=== PATIENT | male | born 1970 | race African-American/Black ===

== ENCOUNTER 2016-08-25 19:09 | Emergency (ER) | payer SELFPAY ==
[~2016-08-25] VITALS: Ht 172.7 cm; Wt 65.8 kg
--- NOTE | 2016-08-25 19:56 | PHYS DOC ---
Past Medical History Past Medical History: No Pertinent History Past Surgical History: No Surgical History Alcohol Use: Occasionally Drug Use: None Adult General Chief Complaint Chief Complaint: ABDOMINAL PAIN HPI HPI Patient is a 46 year old male who presents with one-week history of left flank pain nontraumatic no nausea vomiting diarrhea no fever no dysuria; positive for urinary frequency. Denies any abdominal pain. No prior history of kidney stones. Denies any other medical problems such as diabetes Review of Systems Review of Systems Constitutional: Denies fever or chills [] Eyes: Denies change in visual acuity, redness, or eye pain [] HENT: Denies nasal congestion or sore throat [] Respiratory: Denies cough or shortness of breath [] Cardiovascular: No additional information not addressed in HPI [] GI: Denies abdominal pain, nausea, vomiting, bloody stools or diarrhea [] : Denies dysuria or hematuria [] Musculoskeletal: Denies back pain or joint pain [] Integument: Denies rash or skin lesions [] Neurologic: Denies headache, focal weakness or sensory changes [] Endocrine: Denies polyuria or polydipsia All review systems negative except as mentioned in the history of present illness [] Current Medications Current Medications Current Medications Medications (Trade) Dose Ordered Sig/Bob Start Time Stop Time Status Last Admin Dose Admin Ketorolac Tromethamine (Toradol) 30 mg 1X ONCE 08/25/16 20:00 08/25/16 20:01 DC 08/25/16 20:14 30 MG Ondansetron HCl (Zofran) 4 mg 1X ONCE 08/25/16 20:00 08/25/16 20:01 DC 08/25/16 20:14 4 MG Sodium Chloride 1,000 ml @ 1,000 mls/hr 1X ONCE 08/25/16 20:00 08/25/16 20:59 DC 08/25/16 20:13 1,000 MLS/HR Allergies Allergies Allergies Coded Allergies Type Severity Reaction Last Updated Verified No Known Drug Allergies 08/25/16 No Physical Exam Physical Exam Constitutional: Well developed, well nourished, no acute distress, non-toxic appearance. [] HENT: Normocephalic, atraumatic, bilateral external ears normal, oropharynx moist, no oral exudates, nose normal. [] Eyes: PERRLA, EOMI, conjunctiva normal, no discharge. [] Neck: Normal range of motion, no tenderness, supple, no stridor. [] Cardiovascular:Heart rate regular rhythm, no murmur [] Lungs & Thorax: Bilateral breath sounds clear to auscultation [] Abdomen: Bowel sounds normal, soft, no tenderness, no masses, no pulsatile masses. Patient points to the left flank area as location of his pain and has a nontender abdomen pain sort of radiates to his groin area but he denies any testicular pain or swelling to the scrotum. [] Skin: Warm, dry, no erythema, no rash. [] Back: No tenderness, no CVA tenderness. [] Extremities: No tenderness, no cyanosis, no clubbing, ROM intact, no edema. [] Neurologic: Alert and oriented X 3, normal motor function, normal sensory function, no focal deficits noted. [] Psychologic: Affect normal, judgement normal, mood normal. [] Current Patient Data Vital Signs Vital Signs Date Time Temp Pulse Resp B/P (MAP) Pulse Ox O2 Delivery O2 Flow Rate FiO2 08/25/16 20:53 72 21 145/86 (105) 99 Room Air 08/25/16 19:24 98.3 98.3 Lab Values Laboratory Tests Test 08/25/16 20:41 08/25/16 21:03 Urine Collection Type Unknown Urine Color Yellow Urine Clarity Clear Urine pH 6.5 Urine Specific [place] 1.020 Urine Protein Negative mg/dL (NEG-TRACE) Urine Glucose (UA) Negative mg/dL (NEG) Urine Ketones (Stick) Negative mg/dL (NEG) Urine Blood Trace (NEG) Urine Nitrite Negative (NEG) Urine Bilirubin Negative (NEG) Urine Urobilinogen Dipstick 1.0 mg/dL (0.2 mg/dL) Urine Leukocyte Esterase Small (NEG) Urine RBC 1-2 /HPF (0-2) Urine WBC 5-10 /HPF (0-4) Urine Squamous Epithelial Cells Few /LPF Urine Bacteria Few /HPF (0-FEW) Urine Mucus Mod /LPF Sodium Level 145 mmol/L (136-145) Potassium Level 3.7 mmol/L (3.5-5.1) Chloride Level 110 mmol/L (98-107) H Carbon Dioxide Level 26 mmol/L (21-32) Anion Gap 9 (6-14) Blood Urea Nitrogen 16 mg/dL (8-26) Creatinine 1.1 mg/dL (0.7-1.3) Estimated GFR (Cockcroft-Gault) 87.2 Glucose Level 113 mg/dL (70-99) H Calcium Level 8.5 mg/dL (8.5-10.1) Laboratory Tests 08/25/16 21:03 EKG EKG [] Radiology/Procedures Radiology/Procedures CT scan abdomen and pelvis negative per radiology no renal stones or ureterolithiasis. [] Course & Med Decision Making Course & Med Decision Making Pertinent Labs and Imaging studies reviewed. (See chart for details) [Plan of care includes urinalysis and basic metabolic panel symptomatic treatment and CT scan abdomen and pelvis without. 08/03/14: Patient is relaxing feels improved and better wants to go home. Discussed negative CT findings. UA was consistent with UTI we will treat accordingly.] Dragon Disclaimer Dragon Disclaimer This electronic medical record was generated, in whole or in part, using a voice recognition dictation system. Departure Departure Impression: Primary Impression: UTI (urinary tract infection) Additional Impression: Left flank pain Disposition: HOME, SELF-CARE Condition: IMPROVED Referrals: NO PCP (PCP) Patient Instructions: Urinary Tract Infection, [id number] Scripts Nitrofurantoin Monohyd/M-Cryst (MACROBID 100 MG CAPSULE) 100 Mg Capsule 1 CAP PO BID, #14 CAP Prov: LEONARD CAMACHO MD 08/25/16 Problem Qualifiers LEONARD CAMACHO MD Aug 25, 2016 19:56
[2016-08-25] MEDS ORDERED: ONDANSETRON PF 4 MG/2 ML VIAL. IV ONE (20:00)
[2016-08-25] MEDS ORDERED: KETOROLAC TROMETHAMINE 30 MG/ML INJ. IV ONE (20:00)
[2016-08-25] MEDS ORDERED: IV NORMAL SALINE 1000ML BAG 1,000 ML IV ONE (20:00)
--- NOTE | 2016-08-25 20:24 | RAD ---
CT ABDOMEN PELVIS WO CONTRAST dated 08/25/2016 8:01 PM Indication: Abdominal pain, severe left flank painSEVERE LT FLANK PAIN X 1 WEEK, NO PRIORS, renal stone protocol Comparison: No comparison is available. Technique: Contiguous axial imaging of the abdomen and pelvis performed without the administration of IV or oral contrast. One or more of the following individualized dose reduction techniques were utilized for this examination: 1. Automated exposure control 2. Adjustment of the mA and/or kV according to patient size 3. Use of iterative reconstruction technique Findings: Limited images of the lung bases show patchy and linear opacities bilaterally, likely scar or atelectasis. Large calcified granuloma left lower lobe. Heart size within normal limits. No pleural or pericardial effusion. Solid abdominal viscera not well evaluated in the absence of contrast material. No apparent attenuation abnormality of the liver or spleen. Pancreas, adrenal glands, gallbladder Both kidneys are symmetric in size and attenuation. No calcific renal or ureteral stone. No hydronephrosis. Unopacified GI tract normal in caliber and contour. No focal bowel wall thickening. No inflammatory stranding in the mesentery. Appendix is normal in caliber. No ascites or lymphadenopathy. Images of pelvis a nondistended urinary bladder. No calcific bladder stone. Suggestion of mild diffuse bladder wall thickening. Prostate gland mildly enlarged. No free fluid or lymphadenopathy. Bone windows show no acute findings. Multilevel spondylosis. IMPRESSION: 1. No acute abnormality of abdomen or pelvis. No renal stone or process. 2. Patchy and linear opacities at both lung bases, likely scar or atelectasis in acute inflammatory process cannot be excluded. Electronically signed by: Srikanth Pal MD (08/25/2016 8:21 PM) [facility]
[2016-08-25 20:51] LABS: BILIRUBIN,URINE NEGATIVE (NEG); GLUCOSE,URINE NEGATIVE (NEG); NITRITE,URINE NEGATIVE (NEG); PH,URINE 6.5; PROTEIN,URINE NEGATIVE (NEG-TRACE)
[2016-08-25 20:53] VITALS: BP 145/86
[2016-08-25 20:57] LABS: BACTERIA,URINE FEW /HPF (0-FEW)
[2016-08-25 20:58] LABS: SQUAMOUS EPITHELIAL CELL,UR FEW /LPF
[2016-08-25 21:19] LABS: CALCIUM 8.5 mg/dL (8.5-10.1); CREATININE 1.1 mg/dL (0.7-1.3); GFR 87.2; POTASSIUM 3.7 mmol/L (3.5-5.1)
[2016-08-25] MEDS ORDERED: NITR100C62 PO (21:36)
== END 2016-08-25 21:43 | disposition home or self-care (01) ==
LOC: ER 19:09
DX: N39.0 Urinary tract infection, site not specified (principal)
CPT/HCPCS: 36415; 74176; 80048; 81001; 87086; 96361; 96374; 96375; 99285; J1885; J2405; J7030

== ENCOUNTER 2019-06-10 12:54 | Emergency (ER) | payer SELFPAY ==
[~2019-06-10] VITALS: Ht 170.2 cm; Wt 67.0 kg
[~2019-06-10 12:54] MED LIST: NITR100C62 PO
[2019-06-10 13:04] VITALS: BP 132/89
[2019-06-10 13:30] LABS: BASO # 0.1 x10^3/uL (0.0-0.2); BASO % 1 % (0-3); EOS # 0.1 x10^3/uL (0.0-0.7); EOS % 1 % (0-3); HEMATOCRIT 44.7 % (39.0-53.0); HEMOGLOBIN 15.2 g/dL (13.0-17.5); LYMPH # 3.5 x10^3/uL (1.0-4.8); LYMPH % 44 % (24-48); MEAN CORPUSCULAR HEMOGLOBIN 32 pg (25-35); MEAN CORPUSCULAR HGB CONC 34 g/dL (31-37); MEAN CORPUSCULAR VOLUME 96 fL (79-100); MONO # 0.4 x10^3/uL (0.0-1.1); MONO % 5 % (0-9); NEUT % 49 % (31-73); PLATELET COUNT 136 x10^3/uL (140-400); RED BLOOD COUNT 4.68 x10^6/uL (4.30-5.70); RED CELL DISTRIBUTION WIDTH 14.5 % (11.5-14.5); WHITE BLOOD COUNT 8.1 x10^3/uL (4.0-11.0)
[2019-06-10 13:32] LABS: CALCIUM 8.7 mg/dL (8.5-10.1); CREATININE 0.9 mg/dL (0.7-1.3); GFR 108.5; POTASSIUM 3.8 mmol/L (3.5-5.1)
--- NOTE | 2019-06-10 13:33 | RAD ---
EXAM: CHEST 1 VIEW History: Chest pain COMPARISON: None available. TECHNIQUE: Single portable radiograph of the chest FINDINGS: The cardiac silhouette is unremarkable. The lungs are clear bilaterally. The costophrenic sulci are clear and well demarcated. IMPRESSION: No radiographic evidence of an acute cardiopulmonary process. Electronically signed by: Geraldo Cordoba MD (06/10/2019 1:30 PM) [id number]
[2019-06-10 13:38] LABS: ALBUMIN 3.8 g/dL (3.4-5.0); ALBUMIN/GLOBULIN RATIO 1.2 (1.0-1.7); TOTAL BILIRUBIN 0.4 mg/dL (0.2-1.0)
--- NOTE | 2019-06-10 13:44 | EKG ---
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
--- NOTE | 2019-06-10 13:49 | PHYS DOC ---
Past Medical History Past Medical History: No Pertinent History Past Surgical History: No Surgical History Smoking Status: Current Every Day Smoker Alcohol Use: Occasionally Drug Use: None Adult General Chief Complaint Chief Complaint: CHEST PAIN HPI HPI Patient is a 49 year old AA male who presents with left-sided chest wall pain. an is located over the lower left lateral pectoral muscle and reproduces with palpation, arm and trunk movement. It is not associated with shortness of breath is not worse with exertion. He is not relieved with rest. No nausea vomiting, sweats abdominal pain. No leg pain or swelling. Symptom onset was 2 hours prior to ED arrival. Review of Systems Review of Systems ROS as per HPI All other systems were reviewed and found to be within normal limits, except as documented in this note. Allergies Allergies Allergies Coded Allergies Type Severity Reaction Last Updated Verified No Known Drug Allergies 08/25/16 No Physical Exam Physical Exam Constitutional: Well developed, well nourished, no acute distress, non-toxic appearance. [] HENT: Normocephalic, atraumatic, bilateral external ears normal, , nose normal. [] Eyes: PERRLA, EOMI, conjunctiva normal. [] Neck: Normal range of motion. [] Cardiovascular:Heart rate regular rhythm, no murmur, regular rate and rhythm, reproducible left lower chest wall pain located over lateral pectoral muscles reproducing complaint. Negative Homans sign. [] Lungs & Thorax: Bilateral breath sounds clear to auscultation [] Abdomen: Bowel sounds normal, soft, no tenderness. [] Skin: Warm, dry, no erythema. [] Back: No tenderness. [] Extremities: No tenderness, no cyanosis, no clubbing, ROM intact, no edema. [] Neurologic: Alert and oriented X 3, normal motor function, normal sensory function, no focal deficits noted. [] Psychologic: Affect normal, judgement normal, mood normal. [] Current Patient Data Vital Signs Vital Signs Date Time Temp Pulse Resp B/P (MAP) Pulse Ox O2 Delivery O2 Flow Rate FiO2 06/10/19 13:04 98.4 70 20 132/89 (103) 99 Room Air 98.4 Lab Values Laboratory Tests Test 06/10/19 13:13 White Blood Count 8.1 x10^3/uL (4.0-11.0) Red Blood Count 4.68 x10^6/uL (4.30-5.70) Hemoglobin 15.2 g/dL (13.0-17.5) Hematocrit 44.7 % (39.0-53.0) Mean Corpuscular Volume 96 fL (79-100) Mean Corpuscular Hemoglobin 32 pg (25-35) Mean Corpuscular Hemoglobin Concent 34 g/dL (31-37) Red Cell Distribution Width 14.5 % (11.5-14.5) Platelet Count 136 x10^3/uL (140-400) L Neutrophils (%) (Auto) 49 % (31-73) Lymphocytes (%) (Auto) 44 % (24-48) Monocytes (%) (Auto) 5 % (0-9) Eosinophils (%) (Auto) 1 % (0-3) Basophils (%) (Auto) 1 % (0-3) Neutrophils # (Auto) 4.0 x10^3/uL (1.8-7.7) Lymphocytes # (Auto) 3.5 x10^3/uL (1.0-4.8) Monocytes # (Auto) 0.4 x10^3/uL (0.0-1.1) Eosinophils # (Auto) 0.1 x10^3/uL (0.0-0.7) Basophils # (Auto) 0.1 x10^3/uL (0.0-0.2) Sodium Level 140 mmol/L (136-145) Potassium Level 3.8 mmol/L (3.5-5.1) Chloride Level 106 mmol/L (98-107) Carbon Dioxide Level 26 mmol/L (21-32) Anion Gap 8 (6-14) Blood Urea Nitrogen 9 mg/dL (8-26) Creatinine 0.9 mg/dL (0.7-1.3) Estimated GFR (Cockcroft-Gault) 108.5 BUN/Creatinine Ratio 10 (6-20) Glucose Level 114 mg/dL (70-99) H Calcium Level 8.7 mg/dL (8.5-10.1) Total Bilirubin 0.4 mg/dL (0.2-1.0) Aspartate Amino Transferase (AST) 27 U/L (15-37) Alanine Aminotransferase (ALT) 15 U/L (16-63) L Alkaline Phosphatase 59 U/L (46-116) Troponin I Quantitative < 0.017 ng/mL (0.000-0.055) MH-Ltf-F-Type Natriuretic Peptide 27 pg/mL (0-124) Total Protein 7.0 g/dL (6.4-8.2) Albumin 3.8 g/dL (3.4-5.0) Albumin/Globulin Ratio 1.2 (1.0-1.7) Laboratory Tests 06/10/19 13:13 Laboratory Tests 06/10/19 13:13 EKG EKG [EKG: reviewed. ] Radiology/Procedures Radiology/Procedures [CXR: NAD] Course & Med Decision Making Course & Med Decision Making Pertinent Labs and Imaging studies reviewed. (See chart for details) [Mechanical chest wall pain with otherwise benign exam, troponin negative despite reater than 3 hours obtained. current supportive care, watchful waiting and PCP follow-up. Return precautions reviewed. Patient verbalizes understanding and agreement discharge instructions prior to departure.] Dragon Disclaimer Dragon Disclaimer This electronic medical record was generated, in whole or in part, using a voice recognition dictation system. Departure Departure Impression: Primary Impression: Chest wall pain Disposition: 01 HOME, SELF-CARE Condition: STABLE Referrals: NO PCP (PCP) Patient Instructions: Chest Wall Pain, [id number] Additional Instructions: You were evaluated in the emergency department for chest wall pain. EKG, lab and imaging studies were performed and are nondiagnostic. Please take naproxen twice daily for chest wall pain and follow-up with your PCP in 3-5 days for reevaluation. Return to the ED if new or worsening symptoms. SIOMARA ORNELAS DO Jun 10, 2019 13:49
== END 2019-06-10 14:19 | disposition home or self-care (01) ==
LOC: ER 12:54
DX: R07.89 Other chest pain (principal); R06.02 Shortness of breath; F17.200 Nicotine dependence, unspecified, uncomplicated
CPT/HCPCS: 36415; 71045; 80053; 83880; 84484; 85025; 93005; 99285-25

== ENCOUNTER 2020-04-06 10:53 | Emergency (ER) | payer OTHER ==
[~2020-04-06] VITALS: Ht 170.2 cm; Wt 65.0 kg
[2020-04-06] MEDS ORDERED: NAPROXEN 500 MG TABLET PO STA (11:27)
[2020-04-06] MEDS ORDERED: HYDROcodone/APAP 5/325MG 1 TAB TABLET PO ONE (11:30)
--- NOTE | 2020-04-06 12:22 | PHYS DOC ---
Past Medical History Past Medical History: No Pertinent History Past Surgical History: No Surgical History Smoking Status: Current Every Day Smoker Alcohol Use: Occasionally Drug Use: None General Adult EDM: Chief Complaint: MECHANICAL FALL HPI: HPI: Patient is a 50 year old male who presents to the ED today complaining of 10 out of 10 left shoulder pain, symptoms began on Friday after he fell. Patient states he was having a chest, slipped on ice and the chest fell on his left shoulder. Patient denies any loss of consciousness. Denies hitting his head on the ground. States most of the pain is on range of motion. Describes the pain as throbbing and intermittent. Denies anything specifically relieving the pain. Review of Systems: Review of Systems: Constitutional: Denies fever or chills. [] Musculoskeletal: Reports left shoulder pain. Integument: Denies rash. [] Neurologic: Denies headache, focal weakness or sensory changes. [] Psychiatric: Denies depression or anxiety. [] Heart Score: Risk Factors: Risk Factors: DM, Current or recent (<one month) smoker, HTN, HLP, family history of CAD, obesity. Risk Scores: Score 0 - 3: 2.5% MACE over next 6 weeks - Discharge Home Score 4 - 6: 20.3% MACE over next 6 weeks - Admit for Clinical Observation Score 7 - 10: 72.7% MACE over next 6 weeks - Early Invasive Strategies Current Medications: Current Medications Medications (Trade) Dose Ordered Sig/Bob Start Time Stop Time Status Last Admin Dose Admin Acetaminophen/ Hydrocodone Bitart (Lortab 5/325) 2 tab 1X ONCE 04/06/20 11:30 04/06/20 11:31 DC 04/06/20 11:40 2 TAB Naproxen (Naprosyn) 500 mg 1X STAT 04/06/20 11:27 04/06/20 11:29 DC 04/06/20 11:40 500 MG Allergies: Allergies: Allergies Coded Allergies Type Severity Reaction Last Updated Verified No Known Drug Allergies 08/25/16 No Physical Exam: PE: Constitutional: Well developed, well nourished, no acute distress, non-toxic appearance. [] Skin: Warm, dry, no erythema, no rash. [] Back: No tenderness, no CVA tenderness. [] Extremities: Left shoulder with no obvious deformity. Diffuse tenderness to the anterior aspect of the left shoulder. Limited range of motion to the left shoulder due to pain. +2 left radial pulse. Cap refill less than 2 seconds in left fingers. Neurologic: Alert and oriented X 3, normal motor function, normal sensory function, no focal deficits noted. [] Psychologic: Affect normal, judgement normal, mood normal. [] Current Patient Data: Vital Signs: Vital Signs Date Time Temp Pulse Resp B/P (MAP) Pulse Ox O2 Delivery O2 Flow Rate FiO2 04/06/20 11:40 18 99 Room Air 04/06/20 11:04 97.8 69 151/95 (113) 97.8 EKG: EKG: [] Radiology/Procedures: Radiology/Procedures: []PROCEDURE: SHOULDER 2+V LEFT EXAM: 3 Views Left Shoulder DATE: 04/06/2020 11:31 AM INDICATION: Reason: fall pain / Spl. Instructions: / History: COMPARISON: No Prior FINDINGS: There is no evidence for acute fracture or dislocation. AC joint is congruent. Humeral head is not high riding. IMPRESSION: 1. No acute fracture or dislocation. Electronically signed by: Rogelio Gaviria MD (04/06/2020 12:26 PM) [id number] DICTATED and SIGNED BY: ROGELIO GAVIRIA MD DATE: 04/06/20 [id number] Course & Med Decision Making: Course & Med Decision Making Pertinent Labs and Imaging studies reviewed. (See chart for details) This is a 50-year-old male patient presenting to the ED today with left shoulder pain after falling on ice and a chest falling on his left shoulder. Left shoulder x-rays interpreted by radiologist as negative for any acute findings. Discharge to home. Ice elevation encouraged. Follow-up with orthopedic doctor in 1 week Soraya Disclaimer: Soraya Disclaimer: This electronic medical record was generated, in whole or in part, using a voice recognition dictation system. Departure Departure Impression: Primary Impression: Fall Qualified Codes: W19.XXXA - Unspecified fall, initial encounter Additional Impression: Contusion of shoulder, left Qualified Codes: S40.012A - Contusion of left shoulder, initial encounter Disposition: 01 DC HOME SELF CARE/HOMELESS Condition: STABLE Referrals: NO PCP (PCP) TRE FRY MD follow up in 1 week Patient Instructions: Shoulder Pain, [id number] Additional Instructions: You were seen for left shoulder pain, and left shoulder x-rays are negative for any acute findings. Please follow-up with your orthopedic doctor in 1 to 2 weeks. We provided you 1 on your discharge paperwork. Come back to the ED at any point symptoms worsen Scripts Diclofenac Potassium (DICLOFENAC POTASSIUM) 50 Mg Tablet 1 TAB PO BID, #20 TAB 0 Refills Prov: BUBBA REIS APRN 04/06/20 Cyclobenzaprine Hcl (CYCLOBENZAPRINE HCL) 10 Mg Tablet 1 TAB PO TID, #30 TAB Prov: BUBBA REIS APRN 04/06/20 BUBBA REIS APRN Apr 06, 2020 12:22
--- NOTE | 2020-04-06 12:28 | RAD ---
EXAM: 3 Views Left Shoulder DATE: 04/06/2020 11:31 AM INDICATION: Reason: fall pain / Spl. Instructions: / History: COMPARISON: No Prior FINDINGS: There is no evidence for acute fracture or dislocation. AC joint is congruent. Humeral head is not hi gh riding. IMPRESSION: 1. No acute fracture or dislocation. Electronically signed by: Rogelio Gaviria MD (04/06/2020 12:26 PM) [id number]
[2020-04-06] MEDS ORDERED: DICL50TA2 PO (12:37)
[2020-04-06] MEDS ORDERED: CYCL10TA2 PO (12:37)
== END 2020-04-06 12:57 | disposition home or self-care (01) ==
LOC: ER 10:53
DX: S40.012A Contusion of left shoulder, initial encounter (principal); F17.200 Nicotine dependence, unspecified, uncomplicated; W00.0XXA Fall on same level due to ice and snow, initial encounter; Y93.89 Activity, other specified; Y92.89 Other specified places as the place of occurrence of the external cause; Y99.8 Other external cause status
CPT/HCPCS: 73030; 99283

== ENCOUNTER 2020-12-11 11:40 | Emergency (ER) | payer OTHER ==
[~2020-12-11] VITALS: Ht 177.8 cm; Wt 85.0 kg
[~2020-12-11 11:40] MED LIST changes: +CYCL10TA19 PO; +DICL50TA2 PO
[2020-12-11] MEDS ORDERED: fentaNYL PF VIAL 100 MCG/2 ML VIAL ONE (12:05)
[2020-12-11] MEDS ORDERED: fentaNYL PF VIAL 100 MCG/2 ML VIAL IVP ONE ×3 (12:15→14:15)
[2020-12-11] MEDS ORDERED: ceFAZolin SODIUM IV Push 1 GM VIAL. IVP ONE (12:15)
--- NOTE | 2020-12-11 12:30 | RAD ---
EXAM: Right hand, 3 views. HISTORY: Crush injury. COMPARISON: None. FINDINGS: 3 views the right hand are obtained. There are comminuted displaced fractures involving the distal aspect of the third, fourth and fifth metacarpals, the first distal phalanx, and the fifth pr oximal phalanx. There is dislocation of the fourth metacarpal phalangeal joint. There is soft tissue gas. There is a 6 mm radiodense foreign body overlying the dorsal aspect of the hand at the level of the proximal metacarpals. IMPRESSION: Comminuted and displaced fractures involving the distal third, fourth and fifth metacarpa ls, the first distal phalanx and the fifth proximal phalanx. There is also dislocation of the fourth, foci of soft tissue gas and a foreign body overlying the dorsal aspect of the hand at the level of t he proximal metacarpal bones. Electronically signed by: Anika Mixon MD (12/11/2020 12:27 PM) [id number]
[2020-12-11] MEDS ORDERED: HYDROmorphone 2 MG/ML VIAL IVP ONE ×2 (13:00→14:45)
[2020-12-11] MEDS ORDERED: LIDOCAINE 1% Multi-Dose 20 ML VIAL. INJ ONE (13:15)
--- NOTE | 2020-12-11 13:51 | PHYS DOC ---
Past Medical History Past Medical History: No Pertinent History (NASREEN ALDRIDGE APRN) Past Surgical History: No Surgical History (NASREEN ALDRIDGE APRN) Smoking Status: Current Every Day Smoker Alcohol Use: None Drug Use: None (NASREEN ALDRIDGE APRN) General Adult EDM: Chief Complaint: HAND PROBLEM HPI: HPI: Patient is a 50-year-old male presents to the emergency department complaining of a large piece of metal crushing his right hand just prior to arrival. Patient reports he was repairing a piece of machinery when a part came down onto his right hand, states his fingers are pointing in the wrong directions. Reports he has bone sticking out of the palm of his hand. Patient reports a 10 out of 10 pain. Denies numbness or tingling to his right hand or fingers. R eports his last tetanus immunization was less than 5 years ago. Denies taking any ltvq-bud-iigygsd or prescription medications. States he has no primary care physician. Denies allergies to medications. Denies other physical complaints or physical concerns or physical injuries. (NASREEN ALDRIDGE APRN) Review of Systems: Review of Systems: 14 body systems of review of systems have been reviewed. See HPI for pertinent positives and negative responses, otherwise all other systems are negative, nonpertinent or noncontributory. Constitutional: Negative except as outlined in HPI above. Skin: Negative except as outlined in HPI above. Eyes: Negative except as outlined in HPI above. HENT: Negative except as outlined in HPI above. Respiratory: Negative except as outlined in HPI above. Cardiovascular: Negative except as outlined in HPI above. GI: Negative except as outlined in HPI above. : Negative except as outlined in HPI above. Musculoskeletal: Negative except as outlined in HPI above. Integument: Negative except as outlined in HPI above. Neurologic: Negative except as outlined in HPI above. Endocrine: Negative except as outlined in HPI above. Lymphatic: Negative except as outlined in HPI above. Psychiatric: Negative except as outlined in HPI above. (NASREEN ALDRIDGE APRN) Heart Score: C/O Chest Pain: No Risk Factors: Risk Factors: DM, Current or recent (<one month) smoker, HTN, HLP, family history of CAD, obesity. Risk Scores: Score 0 - 3: 2.5% MACE over next 6 weeks - Discharge Home Score 4 - 6: 20.3% MACE over next 6 weeks - Admit for Clinical Observation Score 7 - 10: 72.7% MACE over next 6 weeks - Early Invasive Strategies (NASREEN ALDRIDGE APRN) Current Medications: Current Medications Medications (Trade) Dose Ordered Sig/Bob Start Time Stop Time Status Last Admin Dose Admin Cefazolin Sodium (Ancef) 1 gm 1X ONCE 12/11/20 12:15 12/11/20 12:16 DC 12/11/20 13:00 1 GM Fentanyl Citrate (Fentanyl 2ml Vial) 100 mcg STK-MED ONCE 12/11/20 12:05 12/11/20 12:05 DC Hydromorphone HCl (Dilaudid) 1 mg 1X ONCE 12/11/20 13:00 12/11/20 13:01 DC 12/11/20 12:58 1 MG (NASREEN ALDRIDGE APRN) Allergies: Allergies: Allergies Coded Allergies Type Severity Reaction Last Updated Verified No Known Drug Allergies 12/11/20 No (NASREEN ALDRIDGE APRN) Physical Exam: PE: Constitutional: Well developed, well nourished, no acute distress, non-toxic appearance. 50-year-old male self splinting right hand, otherwise in no apparent distress. HENT: Normocephalic, atraumatic. Eyes: Conjunctiva normal, no discharge. Neck: Normal range of motion, no stridor. Cardiovascular: No cyanosis appreciated, distal cap refill less than 2 seconds. Lungs & Thorax: Patient is in no respiratory distress, no audible adventitious lung sounds appreciated. Abdomen: Nontender, no abnormalities noted. Skin: Warm, dry, no erythema, no rash. See extremity note for focused skin examination. Back: No tenderness, no deformities. Extremities: No tenderness, no cyanosis, no clubbing, ROM intact, no edema. Except for right hand, laceration and swelling to palmar aspect thumb distal phalanx, no deformity appreciated, distal cap refill less than 2 seconds, deformities of ring and pinky finger, distal cap refill less than 2 seconds, limited passive range of motion of digits 4 and 5 related to deformity and pain, gaping wound laceration to palmar aspect hand from digits 3 through 5 at MIP joint skin surfaces with bone exposed near fourth digit MIP joint, no loss of sensation distally. Bleeding controlled with bandage. +2 radial pulse of the right upper extremity. Neurologic: Alert and oriented X 3, normal motor function, normal sensory function, no focal deficits noted. Psychologic: Affect normal, judgement normal, mood normal. (NASREEN ALDRIDGE APRN) Current Patient Data: Vital Signs: Vital Signs Date Time Temp Pulse Resp B/P (MAP) Pulse Ox O2 Delivery O2 Flow Rate FiO2 12/11/20 12:58 18 97 Room Air 12/11/20 12:00 97.5 105 175/80 (111) 97.5 (NASREEN ALDRIDGE APRN) EKG: EKG: [] (NASREEN ALDRIDGE APRN) Radiology/Procedures: Radiology/Procedures: PATIENT: JOSE E CHING ACCOUNT: [id number] : 1970 LOCATION: ER AGE: 50 SEX: M EXAM STATUS: PRE ER ORD. PHYSICIAN: NASREEN ALDRIDGE APRN REASON: Crush injury PROCEDURE: HAND RIGHT 3V EXAM: Right hand, 3 views. HISTORY: Crush injury. COMPARISON: None. FINDINGS: 3 views the right hand are obtained. There are comminuted displaced fractures involving the distal aspect of the third, fourth and fifth metacarp als, the first distal phalanx, and the fifth proximal phalanx. There is dislocation of the fourth metacarpal phalangeal joint. There is soft tissue gas. There is a 6 mm radiodense foreign body overlying the dorsal aspect of the hand at the level of the proximal metacarpals. IMPRESSION: Comminuted and displaced fractures involving the distal third, fourth and fifth metacarpals, the first distal phalanx and the fifth proximal phalanx. There is also dislocation of the fourth, foci of soft tissue gas and a foreign body overlying the dorsal aspect of the hand at the level of the proximal metacarpal bones. Electronically signed by: Anika Mixon MD (12/11/2020 12:27 PM) [id number] (NASREEN ALDRIDGE APRN) Course & Med Decision Making: Course & Med Decision Making Pertinent Labs and Imaging studies reviewed. (See chart for details) 50-year-old male, vital signs reviewed, presents to the emergency department concerning crush injury to right hand. Physical examination concerning for multiple open fracture/dislocation of digits of right hand. Patient is right- hand dominant. Patient reports incident happened in just prior to arrival to the emergency department, presentation consistent with patient's explanation of events. The patient's tetanus immunization is up-to-date per his verbal report. Will give IV Ancef 1 g, IV pain medication, x-ray imaging of right hand. X-ray imaging concerning for multiple fractures with dislocation along with soft tissue gas and foreign body. Discussed patient case and presentation with ED attending physician Dr. Meeks who recommends washing and reduction of acute fractures, transfer to hand surgeon specialty. At 1245, contacted transfer line who reported they did not have hand surgeon service available at [facility]. At 1257 called and discussed patient case and ED work-up with [facility] hand surgeon Dr. Lovell, Dr. Lovell recommended wash with reduction of fractures, [facility] inpatient management physician Dr. Jacob Rodriguez will accept patient in transfer for ongoing management of fracture dislocation, pain control, management of fractured right hand. Discussed with patient transfer to [facility] for ongoing management of fractured hand and pain management, patient is amenable to this transfer. Dr. Meeks to close open skin lacerations and reduce fractures. Please see Dr. Meeks's laceration note and fracture reduction note. Post reduction x-ray ordered. EMTALA transfer forms reviewed and signed, await ing ambulance transport to [facility] [place] in [facility]. Dr. Jacob Rodriguez is excepting physician. Patient approached me, stated he has been waiting much too long for an ambulance ride to [facility] for surgical repair of his hand, states he is leaving immediately to drive to [facility] by POV, states his brother is driving him. I recommended against this, advised patient leaving AGAINST MEDICAL ADVICE to transport self to [facility] raises risks that may include deterioration of limb injury, delay in care related to possible unforeseen delays and driving to [facility] via POV, patient is very concerned about his hand, patient gave verbal understanding of this, patient has eloped from the emergency department prior to completing written leaving AGAINST MEDICAL ADVICE documentation. I contacted [facility] transfer team to advise patient has eloped from the emergency department and reports is coming by POV to the [facility] emergency department, transfer team states they are aware of this, reporting his sister is in the [facility] emergency department waiting room discussing case and care with accepting physician Dr Rodriguez. (NASREEN ALDRIDGE APRN) Dragon Disclaimer: Dragon Disclaimer: This electronic medical record was generated, in whole or in part, using a voice recognition dictation system. (NASREEN ALDRIDGE APRN) Laceration Repair Lac Repair Indication: [] Procedure: The patient was placed in the appropriate position and anesthesia around the [LAC WAS/WERE] [ANESTHESIA]. The area was then [CLEANSED/DEBRIDED]. The laceration was [LAC CLOSURE]. [ADDITIONAL LACS] The wound area was then dressed with [WOUND COVERING]. Total repaired wound length: [TOTAL REPAIR LENGTH]. Other Items: [OTHER ITEMS] The patient tolerated the procedure [TOLERATED]. Complications: [COMPLICATIONS]. (NASREEN ALDRIDGE APRN) Lac Repair I was supervising the nurse practitioner in the care of this patient. The patient has a very complex right hand laceration, with open fracture and fracture/dislocation. Hand surgery services were consulted at [facility] and they have requested that the patient's wounds be cleaned and washed out and closed. I was able to speak personally with the surgeon at [facility] and explained that the patient requires formal urgent hand surgery consultation, and I disagree with the recommendation for discharging the patient home. The patient's wound are quite complex. He still recommended that the patient's wounds be approximated/closed here in this emergency department. The patient did consent to wound care here. He was given IV antibiotics and pain medications prior to wound repair. He consented for all risks, including pain, bleeding, failed attempts at reduction of the fracture/fracture dislocation, nerve injury, vessel injury or infection. Please see the nurse practitioners note for further details about discussion of care. This patient definitively requires formal hand surgeon consultation. His wounds are quite complex. His wounds were approximated as much as was possible in the emergency department. I suspect he will require formal operative reduction of his open fractures/fracture dislocation. As there is no hand surgery here at this facility, the place where he will be best served for his care, to salvage functionality of his dominant hand, will be at [facility], where hand surgeon will be available to assess him. In addition, he requires admission to the hospital for pain control. He has been given antibiotics prior to his transfer to [facility]. Indication: Complex right hand laceration, with open fracture and fracture dislocation. Procedure: The patient was seated, with his right upper extremity placed in extension, elbow extension, right palm facing upward. He was premedicated with multiple IV opioid medications, which he tolerated well. He requires closure of actively bleeding wounds. He requires some superficial exploration, sharp debridement, cleansing and irrigation of these wounds. Utilizing 1% lidocaine without epinephrine, I was able to anesthetize his wounds locally. Adequate anesthesia was achieved. I closely explored his wounds. Sharp debridement was necessary on the more palmar lesions, near the MCP areas. I also perform digital block of the ring finger. He has a laceration of his right thumb, right pinky finger, as well as a larger two-part laceration across the distal palmar surface, again overlying the MCP areas. Sharp debridement was necessary on the palmar wounds. There was minimal debridement necessary on the thumb wound. Minimal debridement necessary on the pinky finger wound. I was able to visualize at least part of the flexor tendon of the pinky finger, 3 range of motion. No visible foreign bodies were noted. I cleaned the entire hand and all of the wounds with Betadine. I irrigated copiously with sterile normal saline. For the thumb laceration, I placed a total of 6 3-0 Prolene simple interrupted sutures to this wound. Adequate hemostasis was achieved. The wound was approximated as well as could be achieved. There were no complications. He tolerated this well. For the palmar surface lacerations, I placed a total of 4 3-0 Prolene simple interrupted sutures. I also placed 1 4-0 Vicryl subcuticular suture at an area which was bleeding, adequate hemostasis was achieved. The wound was proximated as much as could be achieved. In addition, prior to wound closure, I was able to moderately reduce the MCP joint dislocation, anatomic alignment was improved after this. There were no complications with this wound repair. He tolerated this well. For thepinky finger wound, I placed a total of 3 3-0 Prolene simple interrupted sutures. Adequate hemostasis and wound closure was achieved as much as was possible. There were no complications. He tolerated this well. Total repaired wound length: For the thumb laceration length was approximately 4 cm. For the distal palmar laceration, length was approximately 5 cm. For the pinky finger laceration, the wound is approximately 3 cm. Other Items: I personally cleaned the patient's wounds. All wounds were hemostatic after closure that was possible in the emergency department was achieved. I personally placed Vaseline gauze, Telfa, 4 x 4 gauze and rolled gauze over the patient's wounds. The patient tolerated the procedure well. Complications: None. (VALERIE MEEKS DO) Departure Departure Impression: Primary Impression: Open right hand fracture Qualified Codes: S62.91XB - Unspecified fracture of right wrist and hand, initial encounter for open fracture Additional Impression: Laceration of right hand Qualified Codes: S61.421A - Laceration with foreign body of right hand, initial encounter Disposition: 02 SHORT TERM HOSPITAL (Patient transferred to [facility] [place] and can see the Dr. Michael Armstrong accepting physician) Referrals: NO PCP (PCP) NASREEN ALDRIDGE APRN Dec 11, 2020 13:51 VALERIE MEEKS DO Dec 11, 2020 20:00
[2020-12-11 15:39] VITALS: BP 145/78
--- NOTE | 2020-12-11 16:19 | RAD ---
AP, lateral, and oblique views of the right hand were performed. History: Post reduction Comparison: 12:04 PM of the same day. Comminuted displaced fractures of the third through fifth metacarpals are reidentified. Fourth metaca rpal fracture involves the distal articular surface of metacarpal. Stable severe angulation of the imani int. Comminuted fracture of the fifth proximal phalanx is also identified and appear stable. Addition ally a comminuted fracture of the first distal phalanx. There is associated subcutaneous swelling. Hy perdensity between the fourth and fifth distal metacarpals is reidentified and may represent bony fra cture fragment versus foreign body. Electronically signed by: Michael Molina MD (12/11/2020 4:17 PM) [facility]
== END 2020-12-11 17:28 | disposition left against medical advice (07) ==
LOC: ER 11:40
DX: S62.91XB Unspecified fracture of right hand, initial encounter for open fracture (principal); S61.421A Laceration with foreign body of right hand, initial encounter; F17.200 Nicotine dependence, unspecified, uncomplicated; Y28.8XXA Contact with other sharp object, undetermined intent, initial encounter; Y93.89 Activity, other specified; Y92.89 Other specified places as the place of occurrence of the external cause; Y99.8 Other external cause status
CPT/HCPCS: 12002; 26700; 73130; 96361; 96374; 96375; 99285; J0690; J1170; J3010; J3490